=== PATIENT | female | born 1985 | race African-American/Black ===

== ENCOUNTER 2017-03-28 04:10 | Emergency (ER) | payer OTHER ==
[~2017-03-28] VITALS: Ht 165.1 cm; Wt 90.9 kg
[2017-03-28] MEDS ORDERED: PERCOCET 5/31 TABLET PO (05:07)
[2017-03-28 05:27] VITALS: BP 124/80
== END 2017-03-28 05:30 | disposition home or self-care (01) ==
LOC: EME 04:10
DX: S40.012A Contusion of left shoulder, initial encounter (principal); S83.91XA Sprain of unspecified site of right knee, initial encounter; W10.9XXA Fall (on) (from) unspecified stairs and steps, initial encounter
CPT/HCPCS: 73030; 73564; 99281; 99283